=== PATIENT | male | born 1950 | race Caucasian/White ===

== ENCOUNTER → 2020-07-14 | Outpatient (CLI) | payer MEDICARE, OTHER ==
[~2020-07-14] MED LIST: ATEN50 PO; ATOR40TA PO; Adult Low Dose81 MG PO; Crestor20 MG PO; LOSA50 PO; Multiple Vitam1 EAC1 PO
== END ==
LOC: LAB SHORT 08:52 → LAB 08:52
DX: C44.41 Basal cell carcinoma of skin of scalp and neck (principal)
CPT/HCPCS: 88305

== ENCOUNTER 2020-08-05 06:21 | Day surgery (SDC) | payer MEDICARE, OTHER ==
[~2020-08-05] VITALS: Ht 180.3 cm; Wt 86.5 kg
[~2020-08-05 06:21] MED LIST changes: -Crestor20 MG PO
--- NOTE | 2020-08-05 06:35 | NUR ---
History, Chart, Medications and Allergies reviewed before start of procedure. Patient confirms NPO status and agrees with scheduled surgery. Patient States Post-Procedure ride home has been arranged with his , Laney.
[2020-08-05] MEDS ORDERED: Crestor20 MG PO (06:37)
--- NOTE | 2020-08-05 06:42 | NUR ---
Lungs clear T/O to Auscultation.
--- NOTE | 2020-08-05 11:34 | NUR ---
Patient up to Ambulate independently. Gait steady. Discharge instructions reviewed with patient. Patient verbalizes understanding. Copy given to patient to take home. Discharged via wheelchair to private car for ride home. Patient States Post-Procedure ride home has been arranged.
== END 2020-08-05 11:37 | disposition home or self-care (01) ==
LOC: ORSCMMR 06:21 → ORD 07:30 → ORSCMMR 07:30
PROVIDERS: Surgery
PROC: 8E0W4CZ Robotic Assisted Procedure of Trunk Region, Percutaneous Endoscopic Approach (ICD-10-PCS; principal; 2020-08-05 07:30)
PROC: 0YU54JZ Supplement Right Inguinal Region with Synthetic Substitute, Percutaneous Endoscopic Approach (ICD-10-PCS; principal; 2020-08-05 07:30)
DX: K40.90 Unilateral inguinal hernia, without obstruction or gangrene, not specified as recurrent (principal); I10 Essential (primary) hypertension; Z87.891 Personal history of nicotine dependence; R73.03 Prediabetes; Z79.899 Other long term (current) drug therapy
CPT/HCPCS: 49650; S2900; A9270; C1781; J0330; J0690; J2250; J3010; J7120

== ENCOUNTER → 2021-01-19 | Outpatient (CLI) | payer MEDICARE, OTHER ==
[~2021-01-19] MED LIST changes: +Crestor20 MG PO
== END | disposition home or self-care (01) ==
LOC: LAB 15:13 → LAB SHORT 15:13
DX: D48.5 Neoplasm of uncertain behavior of skin (principal)
CPT/HCPCS: 88305

== ENCOUNTER → 2021-06-04 | Outpatient (CLI) | payer MEDICARE, OTHER ==
[2021-06-05 12:45] LABS: Stool Occult Bld Immuno 1 Negative (NEGATIVE); Stool Occult Bld Immuno 2 Negative (NEGATIVE)
== END | disposition home or self-care (01) ==
LOC: LAB SHORT 16:15
PROVIDERS: Internal Medicine Gastroenterology
DX: Z09 Encounter for follow-up examination after completed treatment for conditions other than malignant neoplasm (principal); Z86.010 Personal history of colon polyps
CPT/HCPCS: G0328